=== PATIENT | female | born 1995 | race American Indian/Alaskan Native ===

== ENCOUNTER 2020-03-04 13:15 | Emergency (ER) | payer MEDICAID ==
[2020-03-04 13:25] VITALS: BP 105/66
[2020-03-04 14:22] LABS: Hematocrit 38.9 % (30.3-42.9); Hemoglobin 12.9 gm/dl (10.1-14.3); Mean Corpuscular HGB Conc 33 % (30-34); Mean Corpuscular Volume 89 fl (79-97); Platelet Count 245 K/mm3 (140-440); Red Blood Count 4.37 M/mm3 (3.65-5.03); Red Cell Distribution Width 13.1 % (13.2-15.2)
[2020-03-04 14:30] LABS: Bilirubin,Urine NEG (Negative); Blood,Urine NEG (Negative); Color,Urine Yellow (Yellow); Mucus,Urine FEW /HPF; Protein,Urine <15 mg/dL mg/dL (Negative); RBC,Urine < 1.0 /HPF (0.0-6.0); Urobilinogen,Urine < 2.0 mg/dL (<2.0); WBC,Urine < 1.0 /HPF (0.0-6.0)
[2020-03-04 14:40] LABS: Alanine Aminotransferase 11 units/L (7-56); Albumin 4.1 g/dL (3.9-5); BUN/Creatinine Ratio 8; Blood Urea Nitrogen 5 mg/dL (7-17); Calcium 8.9 mg/dL (8.4-10.2); Hemolysis Index 1
[2020-03-04 14:48] LABS: HCG Qualitative,Urine Positive (Negative)
--- NOTE | 2020-03-04 15:07 | Emergency Department Report ---
ED General Adult HPI - General Chief complaint: Abdominal Pain Stated complaint: 20WKS, BACK PAIN Time Seen by Provider: 03/04/20 14:41 Source: patient Mode of arrival: Ambulatory Limitations: No Limitations - History of Present Illness Initial comments: This 24-year-old female G1, P0 approximately 20 weeks gestation presents the ED complaining of mid chest discomfort that began around last night. Patient states discomfort was localized to the mid chest region and was worse with laying down. Patient denies any medical history or taking any medication other than vitamins. Patient does report some nausea and vomiting associated with her but otherwise none. Patient is a patient of Dr. pal and gets care from Dr. blue and has an appointment in 2 days. She denies coughing, fever, shortness of breath, recent upper respiratory infection, - Related Data Previous Rx's Medication Instructions Recorded Last Taken Type raNITIdine HCl [Zantac] 150 mg PO BID #20 tablet 03/04/20 Unknown Rx Allergies Allergy/AdvReac Type Severity Reaction Status Date / Time Penicillins Allergy Rash Verified 03/04/20 13:23 ED Review of Systems ROS: Stated complaint: 20WKS, BACK PAIN Other details as noted in HPI Comment: All other systems reviewed and negative ED Past Medical Hx - Past Medical History Previous Medical History?: No - Surgical History Past Surgical History?: No - Social History Smoking Status: Never Smoker Substance Use Type: None - Medications Home Medications: Home Medications Medication Instructions Recorded Confirmed Last Taken Type raNITIdine HCl [Zantac] 150 mg PO BID #20 tablet 03/04/20 Unknown Rx ED Physical Exam - General Limitations: No Limitations General appearance: alert, in no apparent distress - Head Head exam: Present: atraumatic, normocephalic - Eye Eye exam: Present: normal appearance - ENT ENT exam: Present: mucous membranes moist - Neck Neck exam: Present: normal inspection - Respiratory Respiratory exam: Present: normal lung sounds bilaterally. Absent: respiratory distress, wheezes, rales, chest wall tenderness, accessory muscle use - Cardiovascular Cardiovascular Exam: Present: regular rate, normal rhythm. Absent: systolic murmur, diastolic murmur, rubs, gallop - GI/Abdominal GI/Abdominal exam: Present: soft, normal bowel sounds. Absent: distended, tenderness - Extremities Exam Extremities exam: Present: normal inspection - Back Exam Back exam: Present: normal inspection - Neurological Exam Neurological exam: Present: alert, oriented X3 - Psychiatric Psychiatric exam: Present: normal affect, normal mood - Skin Skin exam: Present: warm, dry, intact, normal color. Absent: rash ED Course Vital Signs 03/04/20 13:24 Temperature 99.2 F Pulse Rate 95 H Respiratory 17 Rate Blood Pressure 105/66 O2 Sat by Pulse 96 Oximetry ED Medical Decision Making - Lab Data Result diagrams: 03/04/20 13:55 03/04/20 13:55 Laboratory Last Values WBC 3.9 K/mm3 (4.5-11.0) L 03/04/20 13:55 RBC 4.37 M/mm3 (3.65-5.03) 03/04/20 13:55 Hgb 12.9 gm/dl (10.1-14.3) 03/04/20 13:55 Hct 38.9 % (30.3-42.9) 03/04/20 13:55 MCV 89 fl (79-97) 03/04/20 13:55 MCH 30 pg (28-32) 03/04/20 13:55 MCHC 33 % (30-34) 03/04/20 13:55 RDW 13.1 % (13.2-15.2) L 03/04/20 13:55 Plt Count 245 K/mm3 (140-440) 03/04/20 13:55 [place] % (Auto) Marketing Lead 03/04/20 13:55 Sodium 135 mmol/L (137-145) L 03/04/20 13:55 Potassium 4.3 mmol/L (3.6-5.0) 03/04/20 13:55 Chloride 100.9 mmol/L (98-107) 03/04/20 13:55 Carbon Dioxide 20 mmol/L (22-30) L 03/04/20 13:55 Anion Gap 18 mmol/L 03/04/20 13:55 BUN 5 mg/dL (7-17) L 03/04/20 13:55 Creatinine 0.6 mg/dL (0.7-1.2) L 03/04/20 13:55 Estimated GFR > 60 ml/min 03/04/20 13:55 BUN/Creatinine Ratio 8 % 03/04/20 13:55 Glucose 82 mg/dL (65-100) 03/04/20 13:55 Calcium 8.9 mg/dL (8.4-10.2) 03/04/20 13:55 Total Bilirubin 0.20 mg/dL (0.1-1.2) 03/04/20 13:55 AST 17 units/L (5-40) 03/04/20 13:55 ALT 11 units/L (7-56) 03/04/20 13:55 Alkaline Phosphatase 48 units/L (35-129) 03/04/20 13:55 Total Protein 7.1 g/dL (6.3-8.2) 03/04/20 13:55 Albumin 4.1 g/dL (3.9-5) 03/04/20 13:55 Albumin/Globulin Ratio 1.4 % 03/04/20 13:55 Lipase 43 units/L (13-60) 03/04/20 13:55 HCG, Quant 68046 mIU/mL (0-4) H 03/04/20 13:55 Urine Color Yellow (Yellow) 03/04/20 Unknown Urine Turbidity Clear (Clear) 03/04/20 Unknown Urine pH 7.0 (5.0-7.0) 03/04/20 Unknown Ur Specific [place] 1.015 (1.003-1.030) 03/04/20 Unknown Urine Protein <15 mg/dl mg/dL (Negative) 03/04/20 Unknown Urine Glucose (UA) 50 mg/dL (Negative) 03/04/20 Unknown Urine Ketones Neg mg/dL (Negative) 03/04/20 Unknown Urine Blood Neg (Negative) 03/04/20 Unknown Urine Nitrite Neg (Negative) 03/04/20 Unknown Urine Bilirubin Neg (Negative) 03/04/20 Unknown Urine Urobilinogen < 2.0 mg/dL (<2.0) 03/04/20 Unknown Ur Leukocyte Esterase Neg (Negative) 03/04/20 Unknown Urine WBC (Auto) < 1.0 /HPF (0.0-6.0) 03/04/20 Unknown Urine RBC (Auto) < 1.0 /HPF (0.0-6.0) 03/04/20 Unknown U Epithel Cells (Auto) < 1.0 /HPF (0-13.0) 03/04/20 Unknown Urine Mucus Few /HPF 03/04/20 Unknown Urine HCG, Qual Positive (Negative) A 03/04/20 Unknown - Medical Decision Making 24-year-old female presents with chest discomfort most likely secondary to acid reflux. All labs within normal limits. EKG was normal sinus rhythm. I discussed with patient to follow-up with Dr. Sweet on . I prescribed ranitidine for patient and discussed certain foods that worsen acid reflux. All vital signs are normal patient is in no acute distress. Patient was speaking in complete sentences. Critical care attestation.: If time is entered above; I have spent that time in minutes in the direct care of this critically ill patient, excluding procedure time. ED Disposition Clinical Impression: Acid reflux, Chest pain due to GERD Disposition: TO HOME OR SELFCARE Is pt being admited?: No Does the pt Need Aspirin: No Condition: Stable Instructions: Chest Pain (ED), Costochondritis (ED), Diet for Ulcers and Gas tritis (ED) Additional Instructions: Make sure to follow up with the p MANAGER CHILD Dr. blue on as discussed. Take your medications as you've been prescribed. If you have any worsening symptoms or develop new symptoms please return to ED immediately. Prescriptions: raNITIdine HCl [Zantac] 150 mg PO BID #20 tablet Referrals: ALLEN BLUE MD [Primary Care Provider] - 3-5 Days Forms: Work/School Release Form(ED) Time of Disposition: 15:12
[2020-03-04 15:43] LABS: Basophils % (Manual) 0 % (0.0-1.8); Eosinophils % (Manual) 0 % (0.0-4.3); RBC Morphology Normal; Total Cells Counted 100
[2020-03-04 15:44] LABS: Platelet Estimate Consistent w Auto
== END 2020-03-04 15:26 | disposition home or self-care (01) ==
LOC: ED 13:15
DX: O99.612 Diseases of the digestive system complicating pregnancy, second trimester (principal); K92.89 Other specified diseases of the digestive system; K21.9 Gastro-esophageal reflux disease without esophagitis; Z88.0 Allergy status to penicillin; Z3A.20 20 weeks gestation of pregnancy
CPT/HCPCS: 36415; 80053; 81001; 81025; 83690; 84702; 85007; 85025; 93005